=== PATIENT | female | born 1960 | race African-American/Black ===

== ENCOUNTER 2019-03-17 08:13 | Outpatient (CLI) | payer OTHER | END 2019-03-17 23:59 | disposition home or self-care (01) | LOC: CFH 08:13 | PROVIDERS: ATTEND Physician Assistant | DX: N60.02 Solitary cyst of left breast (principal); N60.01 Solitary cyst of right breast | CPT/HCPCS: 76642; 77066 ==

== ENCOUNTER → 2021-04-18 | Outpatient (CLI) | payer OTHER | END | disposition home or self-care (01) | LOC: CFH 15:08 | PROVIDERS: ATTEND Family Medicine | DX: Z12.31 Encounter for screening mammogram for malignant neoplasm of breast (principal) | CPT/HCPCS: 77063; 77067 ==